=== PATIENT | male | born 1955 | race Asian ===

== ENCOUNTER 2019-07-06 21:45 | Emergency (ER) | payer OTHER ==
[~2019-07-06] VITALS: Ht 170.2 cm; Wt 70.3 kg
[2019-07-06 22:06] VITALS: Ht 170.2 cm; Wt 70.3 kg
[2019-07-07 01:39] VITALS: BP 108/71
== END 2019-07-07 01:39 | disposition home or self-care (01) ==
LOC: ED 21:45
DX: S01.81XA Laceration without foreign body of other part of head, initial encounter (principal); E11.9 Type 2 diabetes mellitus without complications; Z88.0 Allergy status to penicillin; W54.0XXA Bitten by dog, initial encounter; Y93.89 Activity, other specified; Y92.89 Other specified places as the place of occurrence of the external cause; Y99.8 Other external cause status
CPT/HCPCS: 90715; J2001

== ENCOUNTER 2019-07-09 08:10 | Emergency (ER) | payer OTHER ==
[~2019-07-09] VITALS: Ht 170.2 cm; Wt 65.8 kg
[2019-07-09 08:26] VITALS: BP 122/81; Ht 170.2 cm; Wt 65.8 kg
== END 2019-07-09 09:42 | disposition home or self-care (01) ==
LOC: ED 08:10
DX: S01.81XD Laceration without foreign body of other part of head, subsequent encounter (principal); Z88.0 Allergy status to penicillin; I10 Essential (primary) hypertension; E11.9 Type 2 diabetes mellitus without complications; W54.0XXD Bitten by dog, subsequent encounter

== ENCOUNTER 2019-07-11 08:00 | Emergency (ER) | payer OTHER ==
[~2019-07-11] VITALS: Ht 170.2 cm; Wt 68.5 kg
[2019-07-11 08:10] VITALS: BP 118/80; Ht 170.2 cm; Wt 68.5 kg
== END 2019-07-11 08:47 | disposition home or self-care (01) ==
LOC: ED 08:00
DX: S01.21XD Laceration without foreign body of nose, subsequent encounter (principal); I10 Essential (primary) hypertension; E11.9 Type 2 diabetes mellitus without complications; Z88.0 Allergy status to penicillin; W54.0XXD Bitten by dog, subsequent encounter